=== PATIENT | female | born 1975 | race Two or more races ===

== ENCOUNTER 2020-07-10 07:43 | Emergency (ER) | payer SELFPAY ==
[~2020-07-10] VITALS: Ht 154.9 cm; Wt 61.2 kg
--- NOTE | 2020-07-10 08:05 | NUR ---
ED Nurse Note: IV was established on right AC 18 ga, blood collected sent to lab
[2020-07-10 08:08] VITALS: BP 141/81
--- NOTE | 2020-07-10 08:10 | Emergency Room Report ---
History of Present Illness General Chief Complaint: General Complaint Source: Patient Present Illness HPI Patient presents with vomiting and back pain. She denies any fevers but she has been taking ibuprofen. The last dose she took was last night. Her boyfriend is hospitalized with COVID-19. She also has been vomiting phlegm. She denies any diarrhea. The back pain is rated 5/10 at this time and aching. It does not radiate. She denies any dyspnea. There is no sore throat. She is concerned because she believes she has COVID-19. She took a test yesterday but does not have the results back. Patient is menopausal at this time. Her boyfriend was initially evaluated July 05 and diagnosed with pneumonia clinically. Her oxygen saturations were 95%. He was admitted July 09. No chest pain, palpitations, dysuria, abdominal pain, rashes, visual changes, dizziness, headache. Allergies: Coded Allergies: No Known Allergies (Unverified , 07/10/20) COVID-19 Screening Contact w/high risk pt: Yes Experienced COVID-19 symptoms?: Yes COVID-19 Testing performed CARPENTER PROTOTYPE: Yes - 07/09/20 COVID-19 Screening: PUI COVID-19 COVID-19 Testing Source: NASALPHARNY Patient History Past Medical History: see triage record Social History: Denies: smoking, alcohol use, drug use Social History Narrative cook Reviewed Nursing Documentation: PMH: Agreed; PSxH: Agreed Nursing Documentation-PMH Past Medical History: No Stated History Review of Systems All Other Systems: negative except mentioned in HPI Physical Exam Vital Signs Date Time Temp Pulse Resp B/P (MAP) Pulse Ox O2 Delivery O2 Flow Rate FiO2 07/10/20 07:45 97.9 93 16 141/81 (101) 97 Room Air Sp02 EP Interpretation: reviewed, normal General Appearance: well appearing, no apparent distress, GCS 15 Head: normocephalic Eyes: bilateral eye normal inspection, bilateral eye PERRL, bilateral eye EOMI ENT: normal pharynx, moist mucus membranes Neck: supple Respiratory: lungs clear, normal breath sounds Cardiovascular #1: regular rate, rhythm Cardiovascular #2: 2+ radial (R) Gastrointestinal: normal inspection, normal bowel sounds, non tender, no mass, non-distended Musculoskeletal: normal range of motion, gait/station normal, tender - Reported lower back mid back Neurologic: alert, oriented x3, grossly normal Psychiatric: mood/affect normal - Slightly anxious Skin: no rash, warm/dry Medical Decision Making Diagnostic Impression: Primary Impression: Viral syndrome Additional Impressions: Suspected 2019 novel coronavirus infection Vomiting Qualified Codes: R11.2 - Nausea with vomiting, unspecified Back pain Qualified Codes: M54.5 - Low back pain ER Course Patient presents after positive exposure to boyfriend who was admitted with COVID-19 at this time. Differential includes COVID-19, other viral etiology, gastroenteritis, pancreatitis, amongst others. Patient evaluated with EKG, chest x-ray and labs including COVID-19 testing. With her symptomatology it is highly suspect that she does have COVID-19 at this time. She would be treated with IV hydration, Reglan, Benadryl and Tylenol. She is not hypoxemic and it depends on labs whether she will need to be admitted to the hospital. EKG no injury. K low. CBC low with no lymphopenia. CMP essentially normal except for potassium. Inflammatory markers not elevated. Switching IV to LR. COVID-19 test negative. She continues to have some low back pain. With further treatment she claims 0/10 pain in her lower back. Discussed results with patient. Discussed treatment plan. Discussed the need for continued isolation. Patient improved with treatment. Stable for outpatient observation and treatment. Laboratory Tests Test 07/10/20 07:55 07/10/20 09:26 White Blood Count 5.1 K/UL (4.8-10.8) Red Blood Count 4.70 M/UL (4.20-5.40) Hemoglobin 14.5 G/DL (12.0-16.0) Hematocrit 41.7 % (37.0-47.0) Mean Corpuscular Volume 89 FL (80-99) Mean Corpuscular Hemoglobin 30.7 PG (27.0-31.0) Mean Corpuscular Hemoglobin Concent 34.7 G/DL (32.0-36.0) Red Cell Distribution Width 11.2 % (11.6-14.8) L Platelet Count 243 K/UL (150-450) Mean Platelet Volume 7.2 FL (6.5-10.1) Neutrophils (%) (Auto) 66.3 % (45.0-75.0) Lymphocytes (%) (Auto) 25.8 % (20.0-45.0) Monocytes (%) (Auto) 5.3 % (1.0-10.0) Eosinophils (%) (Auto) 0.5 % (0.0-3.0) Basophils (%) (Auto) 2.1 % (0.0-2.0) H Prothrombin Time 11.2 SEC (9.30-11.50) Prothrombin Time INR 1.0 (0.9-1.1) Activated Partial Thromboplast Time 24 SEC (23-33) Sodium Level 141 MMOL/L (136-145) Potassium Level 3.2 MMOL/L (3.5-5.1) L Chloride Level 104 MMOL/L (98-107) Carbon Dioxide Level 29 MMOL/L (21-32) Anion Gap 8 mmol/L (5-15) Blood Urea Nitrogen 7 mg/dL (7-18) Creatinine 0.7 MG/DL (0.55-1.30) Estimated Glomerular Filtration Rate > 60 mL/min (>60) Glucose Level 145 MG/DL (74-106) H Lactic Acid Level 1.10 mmol/L (0.4-2.0) Calcium Level 9.2 MG/DL (8.5-10.1) Magnesium Level 2.2 MG/DL (1.8-2.4) Total Bilirubin 1.1 MG/DL (0.2-1.0) H Direct Bilirubin 0.2 MG/DL (0.0-0.3) Aspartate Amino Transferase (AST) 30 U/L (15-37) Alanine Aminotransferase (ALT) 42 U/L (12-78) Alkaline Phosphatase 74 U/L (46-116) Total Creatine Kinase 126 U/L (26-308) Creatine Kinase MB 1.6 NG/ML (0.0-3.6) Creatine Kinase MB Relative Index 1.2 Troponin I 0.000 ng/mL (0.000-0.056) Pro-B-Type Natriuretic Peptide 18 pg/mL (0-125) Total Protein 7.5 G/DL (6.4-8.2) Albumin 4.4 G/DL (3.4-5.0) Globulin 3.1 g/dL Albumin/Globulin Ratio 1.4 (1.0-2.7) Lipase 179 U/L (73-393) Urine Color Pale yellow Urine Appearance Clear Urine pH 8 (4.5-8.0) Urine Specific [place] 1.010 (1.005-1.035) Urine Protein Negative (NEGATIVE) Urine Glucose (UA) Negative (NEGATIVE) Urine Ketones Negative (NEGATIVE) Urine Blood Negative (NEGATIVE) Urine Nitrite Negative (NEGATIVE) Urine Bilirubin Negative (NEGATIVE) Urine Urobilinogen Normal MG/DL (0.0-1.0) Urine Leukocyte Esterase Negative (NEGATIVE) Microbiology Date/Time Source Procedure Growth Status 07/10/20 07:55 Nasopharynx SARS-CoV-2 RdRp Gene Assay - Final Complete EKG Diagnostic Results Rate: normal Rhythm: NSR ST Segments: no acute changes - RSR prime in V1 Rhythm Strip Diag. Results EP Interpretation: yes Rhythm: NSR, no PVC's, no ectopy Chest X-Ray Diagnostic Results Chest X-Ray Diagnostic Results : Chest X-Ray Ordered: Yes # of Views/Limited/Complete: 1 View Indication: Other EP Interpretation: Yes Interpretation: no consolidation, no effusion, no pneumothorax Impression: No acute disease Electronically Signed by: electronically signed by Ryder Banda MD Last Vital Signs Date Time Temp Pulse Resp B/P (MAP) Pulse Ox O2 Delivery O2 Flow Rate FiO2 07/10/20 13:34 97.9 76 16 138/80 97 Room Air Status: improved Scripts Ondansetron Odt* (ZOFRAN ODT*) 4 Mg Tab.rapdis 4 MG BC EVERY 8 HOURS, #6 TAB 0 Refills Prov: Ryder Banda MD 07/10/20 Tramadol Hcl* (ULTRAM*) 50 Mg Tablet 50 MG ORAL Q6H PRN for For Pain, #10 TAB 0 Refills Prov: Ryder Banda MD 07/10/20 Ryder Banda MD Jul 10, 2020 08:10
--- NOTE | 2020-07-10 08:14 | NUR ---
ED Nurse Note: PATIENT AMBULATED TO ED WITH COVID LIKE SYMPTOMS AFTER BEING EXPOSED TO PERSON WITH +COVID. PATIENT C/O BACKACHES, HEADACHES, FATIGUE, N/V, WEAKNESS. PATIENT WALKED IN WITH STEADY GAIT, AAO X 4, VSS AT THIS TIME.
[2020-07-10] MEDS ORDERED: Metoclopramide 10mg/2ml Inj IVP ONE (08:15)
[2020-07-10] MEDS ORDERED: DiphenhydrAMINE 50mg/ml Inj IVP ONE (08:15)
[2020-07-10 08:24] LABS: BASOPHILS % (AUTO) 2.1 % (0.0-2.0); EOSINOPHILS % (AUTO) 0.5 % (0.0-3.0); HEMATOCRIT 41.7 % (37.0-47.0); HEMOGLOBIN 14.5 G/DL (12.0-16.0); LYMPHOCYTES % (AUTO) 25.8 % (20.0-45.0); MEAN CORPUSCULAR VOLUME 89 FL (80-99); MONOCYTES % (AUTO) 5.3 % (1.0-10.0); NEUTROPHILS % (AUTO) 66.3 % (45.0-75.0); PLATELET COUNT 243 K/UL (150-450); RED CELL DISTRIBUTION WIDTH 11.2 % (11.6-14.8); WHITE BLOOD COUNT 5.1 K/UL (4.8-10.8)
[2020-07-10 08:29] LABS: ANION GAP 8 mmol/L (5-15); BLOOD UREA NITROGEN 7 mg/dL (7-18); CALCIUM 9.2 MG/DL (8.5-10.1); CARBON DIOXIDE 29 MMOL/L (21-32); CHLORIDE 104 MMOL/L (98-107); CREATININE 0.7 MG/DL (0.55-1.30); POTASSIUM 3.2 MMOL/L (3.5-5.1); SODIUM 141 MMOL/L (136-145)
[2020-07-10] MEDS ORDERED: LR 1000ml 1,000 ML IV STA (08:31)
[2020-07-10 08:44] LABS: ALANINE AMINOTRANSFERASE 42 U/L (12-78); ALBUMIN 4.4 G/DL (3.4-5.0); ALBUMIN/GLOBULIN RATIO 1.4 (1.0-2.7); ALKALINE PHOSPHATASE 74 U/L (46-116); ASPARTATE AMINO TRANSFERASE 30 U/L (15-37); BILIRUBIN,DIRECT 0.2 MG/DL (0.0-0.3); BILIRUBIN,TOTAL 1.1 MG/DL (0.2-1.0); CKMB 1.6 NG/ML (0.0-3.6); CREATINE KINASE 126 U/L (26-308)
[2020-07-10 09:37] LABS: APPEARANCE,URINE CLEAR; BILIRUBIN, URINE NEGATIVE (NEGATIVE); COLOR,URINE PALE YELLOW; GLUCOSE, URINE (UA) NEGATIVE (NEGATIVE); KETONES,URINE NEGATIVE (NEGATIVE); LEUKOCYTE ESTERASE ,URINE NEGATIVE (NEGATIVE); NITRITE,URINE NEGATIVE (NEGATIVE); PH,URINE 8 (4.5-8.0); PROTEIN,URINE NEGATIVE (NEGATIVE); UROBILINOGEN,URINE NORMAL MG/DL (0.0-1.0)
[2020-07-10 12:02] VITALS: BP 138/80
[2020-07-10] MEDS ORDERED: ONDANSETRON ODT4 MG BC (13:23)
[2020-07-10] MEDS ORDERED: TRAMADOL HCL50 MG ORAL (13:23)
[2020-07-10 13:34] VITALS: BP 138/80
--- NOTE | 2020-07-10 13:35 | NUR ---
ER DISCHARGE NOTE: Patient is cleared to be discharged per ERMD, pt is aox4, on room air, with stable vital signs. pt was given dc and prescription instructions, pt was able to verbalize understanding, pt id band and iv site removed without complications. pt is able to ambulate with steady gait. pt took all belongings.
--- NOTE | 2020-07-10 15:07 | Diagnostic Imaging Report ---
Indication: Reason For Exam: WEAK Technique: Single AP view of the chest. Comparison: None. Findings: The cardiomediastinal silhouette is within normal limits. There is no focal consolidation, pneumothorax or pleural effusion. Osseous structures demonstrate no acute abnormality. IMPRESSION: No radiographic evidence of acute cardiopulmonary process.
--- NOTE | 2020-07-18 16:14 | Cardiology Report ---
APPROVED REPORT EKG Measurement Heart [id number] [place] [id number] <Conclusion> Normal sinus rhythm RSR' or QR pattern in V1 suggests right ventricular conduction delay Borderline ECG
[2020-09-17] MEDS ORDERED: TYLENOL EXTRA500 MG ORAL (12:38)
[2020-09-17] MEDS ORDERED: ZITHROMAX250 MG ORAL (12:38)
[2020-09-17] MEDS ORDERED: PREDNISONE20 MG ORAL (12:38)
== END 2020-07-10 13:36 | disposition home or self-care (01) ==
LOC: EMR 08:21
DX: B34.9 Viral infection, unspecified (principal); R11.2 Nausea with vomiting, unspecified; M54.5 Low back pain; R53.1 Weakness
CPT/HCPCS: 36415; 71045; 80053; 81003; 82248; 82550; 82553; 83605; 83690; 83735; 83880; 84484; 85025; 85610; 85730; 93005; 96361; 96374; 96375; 99284; J1200; J2765; J7030; U0002

== ENCOUNTER → 2020-09-17 | Emergency (ER) | payer SELFPAY ==
[~2020-09-17] VITALS: Ht 152.4 cm; Wt 65.8 kg
[~2020-09-17] MED LIST: ONDANSETRON ODT4 MG BC; PREDNISONE20 MG ORAL; TRAMADOL HCL50 MG ORAL; TYLENOL EXTRA500 MG ORAL; ZITHROMAX250 MG ORAL
[2020-09-17 11:40] LABS: APPEARANCE,URINE CLEAR; BILIRUBIN, URINE NEGATIVE (NEGATIVE); GLUCOSE, URINE (UA) NEGATIVE (NEGATIVE); KETONES,URINE NEGATIVE (NEGATIVE); LEUKOCYTE ESTERASE ,URINE NEGATIVE (NEGATIVE); NITRITE,URINE NEGATIVE (NEGATIVE); PH,URINE 8 (4.5-8.0); PROTEIN,URINE NEGATIVE (NEGATIVE); UROBILINOGEN,URINE NORMAL MG/DL (0.0-1.0)
[2020-09-17 11:43] LABS: COLOR,URINE YELLOW
[2020-09-17 11:57] VITALS: BP 135/72
--- NOTE | 2020-09-17 11:59 | NUR ---
ED Nurse Note:pt. came from home with fever and flue like symptoms
--- NOTE | 2020-09-17 12:37 | Emergency Room Report ---
History of Present Illness General Chief Complaint: Flu Like Symptoms Source: Patient Present Illness HPI 45-year-old female with history of hyperlipidemia currently taking medication here complaining of 2 days of generalized body aches, fever and chills and sore throat. Denies any cough or congestion at this time. Denies any shortness of breath, diarrhea, loss of taste or smell. Patient reports that she has not been coming in contact with anybody who she knows is positive for Covid. Denies , no other health conditions. Has not taken medication for symptom relief. Denies urinary symptoms. 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 COVID-19 Screening: Negative COVID-19 COVID-19 Testing Source: 1 month ago Patient History Past Medical History: see triage record Past Surgical History: none Pertinent Family History: none Now: No Immunizations: UTD Reviewed Nursing Documentation: PMH: Agreed; PSxH: Agreed Nursing Documentation-PMH Past Medical History: No Stated History Review of Systems All Other Systems: negative except mentioned in HPI Physical Exam Vital Signs Date Time Temp Pulse Resp B/P (MAP) Pulse Ox O2 Delivery O2 Flow Rate FiO2 09/17/20 11:10 101.1 112 16 135/72 (93) 99 Room Air Sp02 EP Interpretation: abnormal - elevated temp General Appearance: no apparent distress, alert, GCS 15, non-toxic Head: normocephalic, atraumatic Eyes: bilateral eye normal inspection, bilateral eye PERRL ENT: hearing grossly normal, no angioedema Neck: supple Respiratory: no respiratory distress, no retraction, no accessory muscle use Cardiovascular #1: regular rate, rhythm Gastrointestinal: non-distended Musculoskeletal: back normal, gait/station normal Neurologic: alert, motor strength/tone normal, oriented x3, sensory intact, responsive, speech normal Psychiatric: judgement/insight normal, memory normal, mood/affect normal, no suicidal/homicidal ideation Skin: no rash Lymphatic: no adenopathy Medical Decision Making PA Attestation All diagnoses and treatment plans were reviewed and discussed with my supervising physician Dr. Lopez Diagnostic Impression: Primary Impression: Upper respiratory infection ER Course 45-year-old female with history of hyperlipidemia currently taking medication here complaining of 2 days of generalized body aches, fever and chills and sore throat. Denies any cough or congestion at this time. Denies any shortness of breath, diarrhea, loss of taste or smell. Patient reports that she has not been coming in contact with anybody who she knows is positive for Covid. Denies , no other health conditions. Has not taken medication for symptom relief. Denies urinary symptoms. Ddx considered but are not limited to: strep pharyngitis, URI, tonsillitis, peritonsillar abscess, influneza, coronavirus Vital signs: are WNL, pt. is febrile H&PE are most consistent with: Upper respiratory infection ORDERS: UA, urine test, chest x-ray, azithromycin, prednisone, Tylenol ED INTERVENTIONS: None required at this time. DISCHARGE: At this time pt. is stable for d/c to home. Will provide printed patient care instructions, and any necessary prescriptions. Care plan and follow up instructions have been discussed with the patient prior to discharge. Advised patient to get tested for Covid, take medication as directed, self isolate, if worsening symptoms return to the emergency room Chest X-Ray Diagnostic Results Chest X-Ray Diagnostic Results : Chest X-Ray Ordered: Yes # of Views/Limited/Complete: 1 View Indication: Other EP Interpretation: Yes PA Xray: Interpretation reviewed, by supervising MD, and agrees with findings. Interpretation: no consolidation, no effusion, no pneumothorax Impression: No acute disease Electronically Signed by: Janusz Carrion PA-C Last Vital Signs Date Time Temp Pulse Resp B/P (MAP) Pulse Ox O2 Delivery O2 Flow Rate FiO2 09/17/20 11:57 110 16 Room Air 09/17/20 11:57 101.1 135/72 99 Disposition: HOME, SELF-CARE Condition: Stable Scripts Acetaminophen* (TYLENOL EXTRA STRENGTH*) 500 Mg Tablet 500 MG ORAL Q8H PRN for Prn Headache/Temp > 101, #30 TAB 0 Refills Prov: Janusz Marcelo 09/17/20 Prednisone* (PREDNISONE*) 20 Mg Tablet 40 MG ORAL DAILY for 5 Days, #10 TAB Prov: Janusz Marcelo 09/17/20 Azithromycin* (ZITHROMAX*) 250 Mg Tablet 250 MG ORAL DAILY, #6 TAB 0 Refills Take two tables once daily for 1 day, then one tablet once daily for 4 days. Prov: Janusz Marcelo 09/17/20 Referrals: NOT CHOSEN IPA/MD,REFERRING (PCP) Patient Instructions: Upper Respiratory Infection, Adult, [id number] Additional Instructions: Take medication as directed, follow-up with primary care provider, I recommend he get tested for Covid, reports his symptoms return to the emergency Janusz Marcelo Sep 17, 2020 12:37
--- NOTE | 2020-09-17 13:13 | Diagnostic Imaging Report ---
Indication: Shortness of breath Technique: Single AP view of the chest. Comparison: 07/10/2020 Findings: The cardiomediastinal silhouette is within normal limits and stable compared to the prior exam. There is no focal consolidation, pneumothorax or pleural effusion. Osseous structures demonstrate no acute abnormality. IMPRESSION: No radiographic evidence of acute cardiopulmonary process. No significant interval change compared to exam of 07/10/2020.
[2020-09-17 15:00] VITALS: BP 135/72
== END | disposition home or self-care (01) ==
LOC: EMR 11:39
DX: J06.9 Acute upper respiratory infection, unspecified (principal); E78.5 Hyperlipidemia, unspecified
CPT/HCPCS: 71045; 81001; 99284